=== PATIENT | male | born 1985 | race Caucasian/White ===

== ENCOUNTER → 2021-02-14 17:15 | Outpatient (BNVA) | payer SELFPAY | PROVIDERS: Family Provider Family Medicine; PCP Family Medicine; Visit Provider Nurse Practitioner Family | DX: N48.9 Disorder of penis, unspecified (principal); A64 Unspecified sexually transmitted disease | CPT/HCPCS: 87491; 87591 ==

== ENCOUNTER 2021-12-20 22:40 | Inpatient (IN) | payer MEDICAID, SELFPAY ==
[2021-12-20 22:55] VITALS: BP 125/80; PULSE 95; TEMP 35.9
--- NOTE | 2021-12-20 23:00 | PC.NURSE ---
Patient on Unit Patient brought to ICU 12 via stretcher with EMS. Upon assessment, patient's oxygen saturation 86% on 4L NC. Oxymask at 8L placed on patient bringing saturation up to 93%. Dr. Gilliam notified of patient arrival.
[2021-12-20 23:11] VITALS: BMI 27.1
[2021-12-20 23:30] VITALS: BP 120/79; PULSE 97; RESP 19; RESP 23; O2SAT 93; O2SAT 99
[2021-12-20 23:45] VITALS: BP 120/80; PULSE 101; RESP 24; O2SAT 90
--- NOTE | 2021-12-20 23:45 | PC.NURSE ---
Airborne Precautions Patient has the following risks for TB: an intermittent, productive cough producing blood streaked, frothy sputum; chest x-ray from [facility] reveals ground glass opacities; and patient reports current IV drug abuse in addition to being homeless. Dr. Gilliam notified of risk factors and patient placed on airborne precautions. Telephone order received for blood cultures while additional orders placed by Dr. Gilliam.
[2021-12-21] VITALS (43 sets, daily range): BP systolic 85–154; BP diastolic 57–86; PULSE 88–116; RESP 14–40; TEMP 36.8–37.2; O2SAT 83–100; BMI 27.1
[2021-12-21] MEDS: ondansetron 2 mg/ML SDV 2 mL 4 MG IVP (00:45)
[2021-12-21] MEDS: pantoprazole 40 mg SDV IVP (00:52)
--- NOTE | 2021-12-21 01:13 | PM.HP ---
Providers/Chief Complaint Admitting Physician: Aakash Gilliam Primary Care Provider: Chetna Cordon MD Chief Complaint: Overdose History of Present Illness 36-year-old gentleman with history of IV drug use disorder, injecting methamphetamine, occasionally smoking methamphetamine as well, alcohol use disorder, states drinks about a pint of hard liquor a day, usually vodka, current smoker of 1 pack/day of cigarettes, with history of untreated hepatitis C. He states has been doing well apart from more exertional dyspnea recently, as well as infected blisters on his heels several weeks ago after his feet got soft while he was in care home for a while and was not doing much walking. For this he had completed a course of antibiotic, with only a few tablets left, but states is not sure if some infection could not have entered his bloodstream at the time as he notes he has been having some sores on his forearms and hands. He usually injects methamphetamine, but states has heard some things about fentanyl from his friend who has been using it and last night decided to try it. He states he mixed some with methamphetamine, and injected in mid posterior forearm. He then became unresponsive, with his friend and family unsuccessfully attempting to wake him up by putting ice cream and water on him. EMS was called. He received intranasal Narcan, reported 2 doses, and was reported to also have received 2 minutes of CPR en route to [facility]. There he was awake and alert, but noted in hypoxic respite failure requiring 4 L of oxygen by nasal cannula. With hemoptysis with blood mixed with saliva with some froth. Asked if he had smoked any methamphetamine recently as well, and he states that indeed did smoke some yesterday. Following work-up was obtained at [facility]: ABG 7.3 //23 on 4 L nasal cannula. Coagulation studies, normal INR, PTT minimally elevated 32.9. WBC 11.6, hemoglobin 15.8, platelets 289. Sodium 139, potassium 3.6, anion gap 19, bicarb 21. BUN 16, creatinine 0.9. Calcium 8.5, albumin 4.4. AST 51, ALT 30, T bili 0.5, alk phos 77. Acetaminophen, salicylate levels not elevated. EtOH 43 mg/dL. Ammonia level WNL. TSH WNL. Was additionally tested with COVID-19 PCR, influenza a and B PCR. Both negative. CT angiogram chest with diffuse bilateral groundglass lung parenchymal opacities consistent with pulmonary edema. No evidence of acute pulmonary embolus. Given persistent hypoxia request was made for transfer. On arrival here he is noted requiring 8 L of oxygen by oxygen mask, arriving first on 4 L but with saturation of 86%. Currently he is doing slightly better. Oxygen flow decreased to 6 L. He states his chest is feeling mildly sore after CPR. He still having some intermittent cough with red blood mixed with clear sputum. Had one episode of vomiting here in the hospital, but blood is not due to hematemesis. He endorses that he is currently homeless, living in his pickup truck. He denies night sweats, unintended weight loss, chronic cough, denies hemoptysis preceding last night's events. Review of Systems Const: Denies: fever(s), chills, body aches or malaise Eyes: Denies: change in vision, eye discomfort or eye redness ENMT: Denies: throat pain, oral sores or ear or mastoid pain Card: Reports: chest pain and dyspnea on exertion; Denies: edema or pre-syncope Resp: Reports: dyspnea and hemoptysis; Denies: change in phlegm color GI: Denies: abdominal pain, nausea, vomiting, diarrhea, constipation, hematochezia or melena : Denies: flank pain, difficulty urinating, urinary frequency or hematuria Musc: Denies: back pain, joint swelling or joint redness Skin/Breast: Reports: sores (Reports recently having small sores on his hands arms, hands); Denies: rash Neuro: Denies: headache(s), numbness in extremities, weakness in extremities, dizziness, confusion or seizure-like activity Psych: Reports: other (Denies that the events were related to any intended self-harm.); Denies: suicidal ideation Endo: Denies: polyuria or polydipsia Facundo/Lymph: Denies: easy bleeding or tender lymph nodes All/Imm: Denies: urticaria or tongue swelling Medications/Allergies Home Medications Medication Instructions Recorded Confirmed Last Taken Type valacyclovir 500 mg tablet 1,000 mg PO BID 10 Days #40 tab 02/14/21 02/14/21 Unknown Rx Allergies Allergy/AdvReac Type Severity Reaction Status Date / Time No Known Allergies Allergy Verified 02/14/21 16:45 PFSH Acute PFSH: Medical History Alcohol use disorder Asthma Hepatitis C IVDU (intravenous drug user) Methamphetamine abuse Smoking Surgical History H/O right knee surgery Hx of cholecystectomy Social History Smoking and tobacco status: current every day smoker cigarettes Alcohol intake: current Alcohol intake frequency: 3 or more drinks per day Alcohol type: hard liquor Alcohol use comment: pint, usually vodka Substance/Drug Use: current Substance/Drug use frequency: daily Housing: Homeless Marital status: Single Vitals/I&O/Wt 12/20/21 12/20/21 12/21/21 14:59 22:59 06:59 Output Total 700 / 700 Balance -700 / -700 Weight last 48 hrs Weight 83.552 kg Physical Exam Const: COMMON NORMALS: alert GENERAL APPEARANCE: cooperative and disheveled ORIENTATION/CONSCIOUSNESS: Yes awake OTHER: Pleasant, conversant, cooperative. HENMT: COMMON NORMALS: normocephalic, EAC's normal, Normal external nose present and moist oral mucous membranes HEAD & SCALP: normocephalic NOSE: Normal external nose present EXTERNAL AUDITORY CANAL: EAC's normal Neck/C-Spine: COMMON NORMALS: no meningeal signs Chest: CHEST: Yes Symmetrical chest wall rise Resp: AUSCULTATION: diminished lung sounds OTHER: Coarse breath sounds Cardio: COMMON NORMALS: regular rate, regular rhythm and No murmurs present (Cardio) RATE: regular rate RHYTHM: regular rhythm GI: COMMON NORMALS: Normal to inspection, nondistended, normoactive bowel sounds present, Soft to palpation and non-tender PALPATION: Yes Soft to palpation Extremity: COMMON NORMALS: no pedal edema Neuro: COMMON NORMALS: moves all extremities SENSORIUM/ORIENTATION: Yes alert MENINGEAL SIGNS: Yes no meningeal signs Psych: COMMON NORMALS: mental status grossly normal Skin: LESIONS: lesion noted (Small sores noted on forearms, hands bilaterally.) RASHES: no rashes OTHER: [place] emmanuel posterior right mid forearm, no surrounding erythema or swelling A&P Assessment and plan (1) Acute respiratory failure with hypoxia: Acute hypoxic respiratory failure currently, initially at [facility] noted to have mild hypercapnic respite acidosis after became unresponsive after accidental drug overdose. With hemoptysis blood mixed with clear sputum. Groundglass opacity seen on CT angiogram of the chest done at [facility]. COVID-19 and influenza PCR both negative. He denies hemoptysis preceding these events. Did receive CPR about [address] to [facility]. Possible flash pulmonary edema following respiratory arrest, CPR. Possible diffuse alveolar hemorrhage. He states he did also smoke methamphetamine yesterday. Possible aspiration. Possible pneumonia or atypical infection. No PE on CTA. Discussed differential diagnosis with him. On arrival here hypoxia was slightly worse, requiring 8 L of oxygen by mask due to saturating 86% on 4 L. Currently doing slightly better, nasal cannula flow decreased to 6 L. With possibility of flash pulmonary edema, but will hold off on diuretics or positive pressure ventilation currently as he now remains awake, alert, and appears to be stabilizing on current oxygen. Continue oxygen support, wean down as tolerating. Will empirically cover with Zosyn for possible aspiration, aspiration pneumonia. Collect sputum cultures. Coagulation studies with minimally elevated PTT, normal INR. Monitor hemoptysis. Currently small months of red blood Giurgius blood with clear sputum. He endorses that he remains homeless, also endorses history of incarceration, with groundglass opacities, hemoptysis, recently dyspnea, will request AFB sputum's as well, although he denies other symptoms, and would suspect tuberculosis less likely. Status: Acute (2) Hemoptysis: As above. Repeat blood counts. Status: Acute (3) Ground glass opacity present on imaging of lung: COVID-19 PCR and influenza PCR negative. Suspect this is related to hemoptysis, possibly diffuse overall hemorrhage. Possible pulmonary edema. Possible pneumonitis with aspiration. Additionally requested AFB x3. Discussed with him also lower possibility, but will need to exclude given persistent IV drug use of endocarditis and septic embolization. Blood cultures requested. Status: Acute (4) Accidental drug overdose: Denies any intended self-harm. The overdose after for the first time trying fentanyl mixed into methamphetamine and injected. Status: Acute (5) Dyspnea: Reports recently having more dyspnea especially with exertion. Endorses some history of asthma. Albuterol as needed. Denies any hemoptysis proceeding last night events. Discussed with him also lower possibility, but will need to exclude given persistent IV drug use of endocarditis and septic embolization. Blood cultures requested. Status: Acute (6) IVDU (intravenous drug user): Check HIV, hepatitis panel. He does occasionally share needles. Case management consultation for assistance with seeking rehabilitation. He states he is interested. Status: Acute (7) Methamphetamine abuse: Normally injects or smokes. Status: Acute (8) Hepatitis C: History of untreated hepatitis C. Would benefit from establishing with PCP, referral for treatment and follow-up. Hepatitis panel. Discussed with him risks including liver cirrhosis, cancer. Encouraged to establish follow-up and seek treatment in case of chronic hepatitis C. Status: Acute (9) Alcohol use disorder: Was drinking about a pint of hard liquor daily, usually vodka. He is not aware of history of withdrawal. Start timing, folic acid. Ativan per CIWA protocol. Encourage abstinence. Case management consultation for assistance with rehabilitation. Status: Acute (10) Smoking: Discussed with him smoking cessation. Add nicotine patch, lozenges for replacement. Continue to encourage cessation. Status: Acute (11) Homeless: Case management consultation. Status: Acute Plan Cardiopulmonary arrest on the way to [facility], received 2 minutes of CPR. Will assess with echo. Attestations Medical Necessity Statement*: Admission of over 2 midnights is anticipated for assessment management of hypoxic respiratory failure, hemoptysis. 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
[2021-12-21] MEDS: piperacillin-tazobactam 3.375 GM in sodium chloride 0.9% (plus) 50 ML IV ×3 (02:02→20:36)
--- NOTE | 2021-12-21 02:41 | USCV_ITS ---
Transthoracic Echo Stephan Sherman Age: 36 Gender: M : 1985 Exam Date: 12/21/2021 03:10 Ordering Phys: Aakash Gilliam MD Technologist: Riki Parnell [place] [facility] [place]: cardipulmonary arrest pre- admission BP: 107 / 65 HR: 101 Rhythm: Sinus Technical Quality: Adequate MEASUREMENTS (Male / Female) Normal Values 2D ECHO LV Diastolic Diameter PLAX 4.6 cm 4.2 - 5.9 / 3.9 - 5.3 cm LV Systolic Diameter PLAX 2.6 cm IVS Diastolic Thickness 1.2 cm 0.6 - 1.0 / 0.6 - 0.9 cm IVS Systolic Thickness 1.3 cm LVPW Diastolic Thickness 1.1 cm 0.6 - 1.0 / 0.6 - 0.9 cm LVPW Systolic Thickness 1.5 cm LVOT Diameter 2.0 cm LV Ejection Fraction 2D Teich 76.1 % LV Ejection Fraction MOD 2C 64.6 % LV Ejection Fraction 2C AL 65.9 % LA Diameter 2.5 cm LA Width 3.5 cm LA Height 3.9 cm RA Width 3.6 cm RA Height 4.3 cm Aorta at Sinotubular Diameter 2.4 cm M-MODE Aortic Annulus Diameter 2.1 cm LA Ao Ratio MM 1.5 MV E Point Septal Separation 1.1 cm DOPPLER AV Peak Velocity 183.8 cm/s LVOT Peak Velocity 144.0 cm/s AV Area Cont Eq vti 2.4 cm squared AV Area Cont Eq pk 2.4 cm squared MV Area PHT 3.0 cm squared Mitral E to A Ratio 0.8 MV E' Velocity 45.0 cm/s Mitral E to MV E' Ratio 7.0 Mitral E to LV E' Lateral Ratio 6.3 Mitral E to LV E' Septal Ratio 7.9 TR Peak Velocity 123.8 cm/s TR Peak Gradient 6.1 mmHg TR Mean Velocity 77.2 cm/s TR Mean Gradient 2.8 mmHg TR Velocity Time Integral 29.9 cm Right Atrial Pressure 5.0 mmHg Pulmonary Artery Systolic Pressu 11.1 mmHg PV Peak Velocity 111.0 cm/s FINDINGS Left Ventricle Normal left ventricular size, systolic function and wall thickness, with no regional wall motion abnormalities. Left ventricular ejection fraction is estimated at 65 %. Grade I/IV diastolic dysfunction (abnormal relaxation filling pattern), normal to mildly elevated filling pressures. Right Ventricle The right ventricle is normal in size and function. Right Atrium The right atrium is normal in size. Left Atrium The left atrium is normal in size. Mitral Valve Structurally normal mitral valve without significant stenosis or prolapse. There is no mitral regurgitation. Aortic Valve Structurally normal aortic valve without significant sclerosis or stenosis. There is no aortic regurgitation. Tricuspid Valve Structurally normal tricuspid valve without significant stenosis or regurgitation. Pulmonary artery systolic pressure is normal. Pulmonic Valve Structurally normal pulmonic valve without significant stenosis. There is no pulmonic regurgitation. Pericardium Normal pericardium without effusion. Aorta Normal ascending aorta dimension. CONCLUSIONS Normal left ventricular size, systolic function and wall thickness, with no regional wall motion abnormalities. Left ventricular ejection fraction is estimated at 65 %. Grade I/IV diastolic dysfunction (abnormal relaxation filling pattern), normal to mildly elevated filling pressures. Dr. Suman Stone MD (Electronically Signed) Final Date: 21 December 2021 09:21 S
[2021-12-21 06:13] LABS: Basophils # 0.1 10^3/uL (0.0-0.1); Basophils % 0.3 %; Eosinophils # 0.1 10^3/uL (0.0-0.8); Eosinophils % 0.3 %; Hematocrit 41.7 % (42.0-52.0); Hemoglobin 13.6 g/dL (11.7-16.6); Lymphocytes % 15.8 %; Mean Corpuscular HGB Conc 32.6 g/dL (30.0-36.0); Mean Corpuscular Hemoglobin 32.3 pg (28.0-34.0); Mean Platelet Volume 10.1 fL (7.4-10.4); Monocytes # 0.8 10^3/uL (0.2-0.9); Monocytes % 4.3 %; Neutrophils # 15.02 10^3/uL (1.8-7.7); Neutrophils % 78.9 %; Nucleated Red Blood Cells % 0 %; Platelet Count 265 10^3/cmm (130-400); Red Blood Count 4.21 10^6/uL (4.1-5.3); Red Cell Distribution Width 13.4 % (12.1-15.1)
[2021-12-21 06:36] LABS: Alanine Aminotransferase 29 U/L (0-41); Albumin Level 3.6 g/dL (3.5-5.2); Alkaline Phosphatase 84 IU/L (40-130); Anion Gap 13.2 (5-19); Aspartate Amino Transferase 37 U/L (0-40); Blood Urea Nitrogen 12 mg/dL (6-20); Calcium 8.4 mg/dL (8.5-10.5); Carbon Dioxide 24 mmol/L (22-29); Chloride 103 mmol/L (98-107); Globulin 2.1 g/dL (1.3-4.6); Glomerular Filtration Rate 129.1 mL/min (90-130); Glucose 87 mg/dL (65-115); Osmolality Calculated 281 mOsm/kg (285-295); Potassium 4.2 mmol/L (3.5-5.1); Sodium 136 mmol/L (136-145); Total Protein 5.7 g/dL (6.6-8.7)
[2021-12-21 07:32] LABS: HIV 1 & 2 Antibody Non-Reactive (Non-Reactiv); HIV 1 & 2 Antigen Non-Reactive (Non-Reactiv)
[2021-12-21 07:53] LABS: Hepatitis B Core IgM Non-Reactive (Nonreactive); Hepatitis B Surface Antigen Non-Reactive (Nonreactive); Hepatitis C Virus Antibody Reactive (Nonreactive)
[2021-12-21] MEDS: thiamine 100 mg Tablet PO (09:10)
[2021-12-21] MEDS: multivitamin therapeutic Tablet 1 TAB PO (09:10)
[2021-12-21] MEDS: folic acid 1 mg Tablet PO (09:11)
[2021-12-21] MEDS: nicotine 21 mg Patch 1 PATCH TRANSDERMA (09:11)
--- NOTE | 2021-12-21 13:31 | PM.PN ---
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 Awaiting TB test result HIV negative Afebrile Hemodynamically stable Patient is stating that he lives in a truck and his family has not been able to accept him back yet Vitals/I&O/Wt Last Vital Signs Temp 98.7 F 12/21/21 07:30 Pulse 92 12/21/21 12:00 Resp 19 H 12/21/21 12:00 BP 110/71 12/21/21 11:00 Pulse Ox 92 12/21/21 12:00 12/20/21 12/21/21 12/21/21 22:59 06:59 14:59 Intake Total 930 / 930 494 / 494 Output Total 1335 / 1335 1000 / 1000 Balance -405 / -405 -506 / -506 Weight last 48 hrs Weight 83.552 kg Weight 83.552 kg Physical Exam Narrative: Very pleasant cooperative Well-built lean male male Skin sloughing noticed of his feet no active sign of cellulitis Skin tattoos No active signs of volume overload He has been spitting pink-colored sputum S1, S2 Saturating well on room air Abdomen soft Crackles noted bibasilar area nonlabored breathing Data : 12/21/21 05:30 12/21/21 05:30 Micro: Microbiology 12/21/21 06:15 Legionella Urinary Antigen - Final Urine,Voided Bacterial Antigens - Final 12/21/21 01:05 Gram Stain - Final Sputum - Expectorated Sputum 12/21/21 00:55 Blood Culture - Preliminary Blood SPECIMEN COLLECTED 12/21/21 00:50 Blood Culture - Preliminary Blood SPECIMEN COLLECTED A&P Assessment and plan (1) Homeless: Status: Acute (2) Smoking: Status: Acute (3) Methamphetamine abuse: Status: Acute (4) IVDU (intravenous drug user): Status: Acute (5) Alcohol use disorder: Status: Acute (6) Accidental drug overdose: Status: Acute (7) Hepatitis C: Status: Acute (8) Dyspnea: Status: Acute (9) Ground glass opacity present on imaging of lung: Status: Acute (10) Hemoptysis: Status: Acute (11) Acute respiratory failure with hypoxia: Status: Acute Plan Drug overdose Meth amphetamine and fentanyl Patient was incarcerated for possession of illegal drugs and property damage He is homeless He has been diagnosed with hepatitis C, which he will need treatment outpatient Hypoxia: Resolved currently doing well on room air Hemoptysis: Resolved currently minimal pink-colored sputum production Is hemodynamically stable Reportedly he had a cardiopulmonary arrest for about 2 minutes of CPR which was done by the EMS He is awake and alert I am not sure if he develop pulmonary contusion from the CPR that is why he is spitting up pink sputum, he has multiple risk factors, his immunocompromised, tuberculosis PCR has been requested by the admitting doctor HIV panel is negative No active alcohol withdrawal signs No signs of PE Groundglass opacities My differential would include pulmonary contusion and aspiration before considering tuberculosis and alveolar hemorrhage Acute hypoxic respiratory failure: Resolved No active signs of sepsis Patient can be transferred out of ICU if there is a negative isolation room upstairs Attestations Medical Necessity Statement*: Continue medical management Time Spent in Patient Care: 30mins Coding Level of Care 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
--- NOTE | 2021-12-21 13:44 | XRR_ITS ---
PROCEDURE INFORMATION: Exam: XR Chest Exam date and time: 12/21/2021 3:55 PM Age: 36 years old Clinical indication: Shortness of breath; Additional info: Ggo hypoxia TECHNIQUE: Imaging protocol: XR of the chest. Views: 1 view. COMPARISON: No relevant prior studies available. FINDINGS: Lungs: Ill-defined small rounded opacities centered within the upper lobes. Pleural spaces: No pleural effusion. No pneumothorax. Heart/Mediastinum: No cardiomegaly. Bones/joints: Visualized osseous structures are intact. XR/XR chest 1V portable 07016 IMPRESSION: Ill-defined small rounded opacities centered within the upper lobes suspicious for small airway infectious or inflammatory process.
[2021-12-21] MEDS: FUROsemide 10 mg/mL SDV 2mL 20 MG IVP (14:14)
--- NOTE | 2021-12-21 16:18 | PC.NURSE ---
1615- Patient transferred to second floor room 257 via wheelchair. Patient resting in room with nurse and family at bedside. Belongings transferred with patient. Paper chart left with front desk manager staff.
--- NOTE | 2021-12-21 17:35 | PC.NURSE ---
patient has belongings in the [employer]..
--- NOTE | 2021-12-21 17:36 | PC.NURSE ---
Patient has clothing and snacks in bags in room. This nurse went through them with the ICU nurse. Cleopatra sent home with family member, red mary, 2 room fresheners, pepside and nicotine patches in the [employer].
[2021-12-21] MEDS: amoxicillin-clav 875-125 mg Tablet 1 TAB PO (18:27)
--- NOTE | 2021-12-21 18:31 | PC.NURSE ---
Notified Dr. Garrison of a positive gram positive romina in 1 of 4 blood culture bottles
--- NOTE | 2021-12-21 19:14 | PC.PHAR ---
Vancomycin is dosed at 1gm IVPB every 8 hours to produce a predicted trough level of 12.42 (population based pharmacokinetic analysis). A trough level has been ordered from the lab to be obtained before the fourth dose to confirm and adjust if needed.
[2021-12-21] MEDS: metoprolol tartrate 25 mg Tablet PO ×2 (20:35→22:51)
[2021-12-22] VITALS (9 sets, daily range): BP systolic 113–127; BP diastolic 65–74; PULSE 78–91; RESP 16–18; TEMP 36.5–37.4; O2SAT 91–98
[2021-12-22] MEDS: pantoprazole 40 mg SDV IVP (01:22)
[2021-12-22] MEDS: vancomycin 1,000 MG in sodium chloride 0.9% 250 ML 250 MG IV ×3 (03:17→18:28)
[2021-12-22] MEDS: piperacillin-tazobactam 3.375 GM in sodium chloride 0.9% (plus) 50 ML IV ×2 (04:57→11:24)
[2021-12-22 06:06] LABS: Basophils # 0.1 10^3/uL (0.0-0.1); Basophils % 0.8 %; Eosinophils # 0.5 10^3/uL (0.0-0.8); Eosinophils % 5.4 %; Hematocrit 41.4 % (42.0-52.0); Hemoglobin 13.4 g/dL (11.7-16.6); Lymphocytes # 3.2 10^3/uL (0.8-4.8); Lymphocytes % 32.8 %; Mean Corpuscular HGB Conc 32.4 g/dL (30.0-36.0); Mean Corpuscular Hemoglobin 32.4 pg (28.0-34.0); Mean Platelet Volume 9.8 fL (7.4-10.4); Monocytes % 9.7 %; Neutrophils # 4.98 10^3/uL (1.8-7.7); Neutrophils % 50.8 %; Nucleated Red Blood Cells % 0 %; Platelet Count 229 10^3/cmm (130-400); Red Blood Count 4.14 10^6/uL (4.1-5.3); Red Cell Distribution Width 13.4 % (12.1-15.1); White Blood Count 9.8 10^3/uL (4.0-10.0)
[2021-12-22 06:30] LABS: Alanine Aminotransferase 21 U/L (0-41); Albumin Level 3.4 g/dL (3.5-5.2); Alkaline Phosphatase 82 IU/L (40-130); Anion Gap 10.8 (5-19); Aspartate Amino Transferase 20 U/L (0-40); Blood Urea Nitrogen 10 mg/dL (6-20); Calcium 8.5 mg/dL (8.5-10.5); Carbon Dioxide 25 mmol/L (22-29); Chloride 107 mmol/L (98-107); Globulin 2.2 g/dL (1.3-4.6); Glomerular Filtration Rate 96.6 mL/min (90-130); Glucose 102 mg/dL (65-115); Osmolality Calculated 287 mOsm/kg (285-295); Phosphorus 2.5 mg/dL (2.5-4.5); Potassium 3.8 mmol/L (3.5-5.1); Sodium 139 mmol/L (136-145); Total Bilirubin 0.3 mg/dL (0.15-1.2); Total Protein 5.6 g/dL (6.6-8.7)
[2021-12-22 06:35] LABS: Procalcitonin 0.09 ng/mL (0-0.5)
--- NOTE | 2021-12-22 08:43 | PM.PN ---
Subjective Subjective: Patient is comfortable laying in his bed No overnight events He was complaining of right-sided chest pain which is reproducible His chest pain gets worse on any kind of movement of his upper arms No left-sided or midepigastric pain No nausea or vomiting [place] sputum production has been decreased Hemoglobin stable Afebrile Blood cultures showing gram-positive rods Chest x-ray consistent with pneumonia Vitals/I&O/Wt Last Vital Signs Temp 97.9 F 12/22/21 07:45 Pulse 84 12/22/21 08:20 Resp 16 12/22/21 08:20 BP 113/66 12/22/21 07:45 Pulse Ox 93 12/22/21 08:20 12/21/21 12/22/21 12/22/21 22:59 06:59 14:59 Intake Total 360 / 904 300 / 1204 Output Total 250 / 1250 Balance 360 / -96 50 / -46 Weight last 48 hrs Weight 85.729 kg Weight 83.552 kg Weight 83.552 kg Physical Exam Narrative: Euvolemic Pleasant and cooperative Multiple skin tattoos No active signs of edema No signs of fluid overload Abdomen soft Skin sloughing noticed plantar surface of foot bilaterally No active signs cellulitis Awake and alert No audible stridor or wheezing Saturating well on room air Data : 12/22/21 05:43 12/22/21 05:43 Micro: Microbiology 12/21/21 00:50 Blood Culture - Preliminary Blood NEGATIVE TO DATE 12/21/21 00:55 Blood Culture - Preliminary Blood Gram positive romina 12/21/21 06:15 Legionella Urinary Antigen - Final Urine,Voided Bacterial Antigens - Final 12/21/21 01:05 Gram Stain - Final Sputum - Expectorated Sputum A&P Assessment and plan (1) Homeless: Status: Acute (2) Smoking: Status: Acute (3) Methamphetamine abuse: Status: Acute (4) IVDU (intravenous drug user): Status: Acute (5) Alcohol use disorder: Status: Acute (6) Accidental drug overdose: Status: Acute (7) Hepatitis C: Status: Acute (8) Dyspnea: Status: Acute (9) Ground glass opacity present on imaging of lung: Status: Acute (10) Hemoptysis: Status: Acute (11) Acute respiratory failure with hypoxia: Status: Acute Plan Acute hypoxia: Resolved Currently doing well on room air Chest x-ray consistent with pneumonia Concern for aspiration pneumonia, rule out TB, afebrile Blood culture positive for gram-positive romina, Currently on vancomycin and Zosyn Patient is a IV drug abuser as well, will follow with echo report, which is pending IV drug abuse: Patient currently is not showing active signs of septic embolism, no back pain, he was complaining of right-sided chest pain which most likely is due to the CPR that was done in the ambulance No active signs of withdrawal, continue thiamine, folic acid He has not required Ativan Hemoptysis: Resolved [place] sputum production has improved sputum cultures negative so far HIV panel negative Hepatitis C positive will need outpatient [facility] clinic appointment Pulmonary contusion likely related to CPR done in the ambulance is high on my differential Patient is full code Start regular diet Hemoglobin stable, will start DVT prophylaxis Homeless: Patient is stating that his family might be able to accept him back, Attestations Medical Necessity Statement*: Continue hospitalization until TB results come back Time Spent in Patient Care: 20mins Coding Level of Care 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
[2021-12-22] MEDS: multivitamin therapeutic Tablet 1 TAB PO (09:34)
[2021-12-22] MEDS: thiamine 100 mg Tablet PO (09:34)
[2021-12-22] MEDS: metoprolol tartrate 25 mg Tablet PO ×2 (09:34→23:12)
[2021-12-22] MEDS: folic acid 1 mg Tablet PO (09:34)
[2021-12-22] MEDS: enoxaparin 40 mg/0.4 mL Syringe SUBCUT (09:38)
[2021-12-22] MEDS: nicotine 21 mg Patch 1 PATCH TRANSDERMA (10:29)
[2021-12-22] MEDS: piperacillin-tazobactam 3.375 GM in sodium chloride 0.9% (plus) 50 ML 1.5 GM IV (18:25)
[2021-12-22] MEDS: acetaminophen 325 mg Tablet 650 MG PO (18:36)
[2021-12-22] MEDS: pantoprazole DR 40 mg Tablet PO (23:13)
[2021-12-23] VITALS (9 sets, daily range): BP systolic 115–138; BP diastolic 62–74; PULSE 69–90; RESP 14–19; TEMP 36.4–37; O2SAT 94–98
[2021-12-23 01:39] LABS: Basophils # 0.1 10^3/uL (0.0-0.1); Basophils % 0.7 %; Eosinophils # 0.5 10^3/uL (0.0-0.8); Eosinophils % 4.9 %; Hematocrit 40.2 % (42.0-52.0); Lymphocytes # 3.4 10^3/uL (0.8-4.8); Lymphocytes % 35.4 %; Mean Corpuscular HGB Conc 32.3 g/dL (30.0-36.0); Mean Platelet Volume 9.8 fL (7.4-10.4); Monocytes # 0.9 10^3/uL (0.2-0.9); Monocytes % 9.5 %; Neutrophils % 49.2 %; Nucleated Red Blood Cells % 0 %; Platelet Count 227 10^3/cmm (130-400); Red Blood Count 4.06 10^6/uL (4.1-5.3); Red Cell Distribution Width 13.2 % (12.1-15.1); White Blood Count 9.6 10^3/uL (4.0-10.0)
[2021-12-23 02:07] LABS: Vancomycin Trough 5.7 ug/mL (10-15)
[2021-12-23 02:09] LABS: Alanine Aminotransferase 15 U/L (0-41); Albumin Level 3.3 g/dL (3.5-5.2); Alkaline Phosphatase 71 IU/L (40-130); Aspartate Amino Transferase 15 U/L (0-40); Blood Urea Nitrogen 9 mg/dL (6-20); Calcium 8.7 mg/dL (8.5-10.5); Carbon Dioxide 25 mmol/L (22-29); Chloride 107 mmol/L (98-107); Globulin 2.2 g/dL (1.3-4.6); Glomerular Filtration Rate 110.7 mL/min (90-130); Glucose 106 mg/dL (65-115); Osmolality Calculated 291 mOsm/kg (285-295); Sodium 141 mmol/L (136-145); Total Bilirubin 0.3 mg/dL (0.15-1.2); Total Protein 5.5 g/dL (6.6-8.7)
--- NOTE | 2021-12-23 02:58 | PC.PHAR ---
Pharmacokinetic dosing service Date: 12/23/21 Time: 0300 Patient: Floor: Weight: 85.729 Kilograms Vancomycin single level analysis: Current dose being given: mg Current dosing interval: hrs Current infusion time (hrs): 1 Single level Trough Data: Trough level obtained: 5.7 mcg/ml Timing of trough - # of hrs before next dose: 1.5 Hrs Desired peak: 40 mcg/ml Desired trough: 15 mcg/ml Diagnosis: Relevant medical/social history: Cultures and sensitivities: Other labs: Estimated PK Parameters: New rate constant (bobby): 0.182 hr-1 Half-life: 3.81 Hours Vd from levels: 77.16 Liters (0.7 L/kg) CLvanco=?? 14.043 L/hr Estimated New Dose and Interval Recommended dose: 2322.6 mg Recommended interval: 6.4 Hrs Patient response: Patient is responding to treatment [yes/no] wbc decreasing, S/SX reduced [yes/no] Renal function is stable/unstable Recommendations: Give Vancomycin 1500 mg q 8 hrs. Infuse over 1.5 hrs Expected Cpeak: 22.2 mcg/mL Expected Ctrough: 6.8 mcg/mL AUC 0-24 /LUDIN Data: LUDIN 0.5 mcg/mL:?? AUC/LUDIN:? 640.9 LUDIN 1.0 mcg/mL:?? AUC/LUDIN:? 320.4 Recommended labs and intervals: Measure Bun and Scr 3 times/week. Renal dosing of other antibiotics (review renal dosing of other medications and list guidelines here): Thank you for the consult, will continue to follow. Signature:Mary Sandhu [facility]
[2021-12-23] MEDS: vancomycin 1,500 MG/300 ML PIGGYBACK 200 MG IV (03:32)
[2021-12-23] MEDS: acetaminophen 325 mg Tablet 650 MG PO (03:41)
[2021-12-23] MEDS: piperacillin-tazobactam 3.375 GM in sodium chloride 0.9% (plus) 50 ML 1.5 GM IV (03:43)
[2021-12-23] MEDS: enoxaparin 40 mg/0.4 mL Syringe SUBCUT (08:30)
[2021-12-23] MEDS: nicotine 21 mg Patch 1 PATCH TRANSDERMA (08:30)
[2021-12-23] MEDS: metoprolol tartrate 25 mg Tablet PO ×2 (08:31→20:03)
[2021-12-23] MEDS: folic acid 1 mg Tablet PO (08:31)
[2021-12-23] MEDS: thiamine 100 mg Tablet PO (08:31)
[2021-12-23] MEDS: multivitamin therapeutic Tablet 1 TAB PO (08:31)
[2021-12-23] MEDS: amoxicillin-clav 875-125 mg Tablet 1 TAB PO ×2 (10:10→18:40)
--- NOTE | 2021-12-23 11:45 | PM.PN ---
Subjective Subjective: No evidence of bacteremia I will discontinue IV antibiotics, bacterial contamination of blood culture noted I will keep him on Augmentin only Patient is stating that he might be able to live with his sister in [place], he was eager to return home but unfortunately we have to wait for the tuberculosis test to return if we can make a decision to discharge him in the community Vitals/I&O/Wt Last Vital Signs Temp 97.6 F 12/23/21 07:28 Pulse 69 12/23/21 07:28 Resp 18 12/23/21 07:28 BP 120/74 12/23/21 07:28 Pulse Ox 96 12/23/21 07:28 12/22/21 12/23/21 12/23/21 22:59 06:59 14:59 Intake Total 540 / 1070 263.95 / 1333.95 550 / 550 Output Total 250 / 250 Balance 290 / 820 263.95 / 1083.95 550 / 550 Weight last 48 hrs Weight 85.275 kg Weight 85.729 kg Physical Exam Narrative: Patient is eating breakfast No active complaints Saturating well on room air S1, S2 Reproducible right-sided chest pain Multiple skin tattoos Looks euvolemic Pleasant Abdomen soft Saturating well on room air Data : 12/23/21 01:30 12/23/21 01:30 Micro: Microbiology 12/21/21 21:00 MRSA Culture - Final Nose 12/21/21 00:55 Blood Culture - Preliminary Blood Bacillus sp not b. anthracis 12/21/21 01:05 Gram Stain - Final Sputum - Expectorated Sputum Sputum Culture - Preliminary A&P Assessment and plan (1) Homeless: Status: Acute (2) Smoking: Status: Acute (3) Methamphetamine abuse: Status: Acute (4) IVDU (intravenous drug user): Status: Acute (5) Alcohol use disorder: Status: Acute (6) Accidental drug overdose: Status: Acute (7) Hepatitis C: Status: Acute (8) Dyspnea: Status: Acute (9) Ground glass opacity present on imaging of lung: Status: Acute (10) Hemoptysis: Status: Acute Plan Patient is awaiting tuberculosis test to be finalized Skin contamination and blood culture, he does not need IV antibiotics He is afebrile For his pneumonia I will keep him on Augmentin Pulmonary contusion which caused hemoptysis: Improved No active hemoptysis Hemoglobin stable No need to do CBC and BMP for next 2 days He can be released as soon as tuberculosis test is reported He is full code Regular diet DVT prophylaxis: SCDs No signs of alcohol withdrawal Continue thiamine Continue metoprolol for sinus tachycardia secondary to autonomic dysfunction related to alcohol Attestations Medical Necessity Statement*: Awaiting tuberculosis test to be reported Time Spent in Patient Care: 20min Coding Level of Care Code Acute Food Technology Teacher for g Fwd Diagnoses Homeless Z59.00 Smoking F17.200 Methamphetamine abuse F15.10 IVDU (intravenous drug user) F19.90 Alcohol use disorder Accidental drug overdose T50.901A Hepatitis C B19.20 Dyspnea R06.00 Ground glass opacity present on imaging of lung R91.8 Hemoptysis R04.2
--- NOTE | 2021-12-23 12:59 | PC.NURSE ---
When rounding at 12:30 on 12/23/2021 I noticed the patient's IV's were no longer in his arms. Patient stated that he physician said he no longer needed IV antibiotics and then the patient decided to remove both IVs by himself after the physician left. Securely messaged Dr. Garrison via Voalte and he has been made aware.
[2021-12-23] MEDS: pantoprazole DR 40 mg Tablet PO (20:03)
[2021-12-24] VITALS (8 sets, daily range): BP systolic 111–130; BP diastolic 64–71; PULSE 70–87; RESP 14–17; TEMP 36.3–36.7; O2SAT 95–98
[2021-12-24 05:25] LABS: Alanine Aminotransferase 18 U/L (0-41); Albumin Level 3.5 g/dL (3.5-5.2); Alkaline Phosphatase 70 IU/L (40-130); Anion Gap 12.6 (5-19); Aspartate Amino Transferase 16 U/L (0-40); Blood Urea Nitrogen 11 mg/dL (6-20); Calcium 8.7 mg/dL (8.5-10.5); Carbon Dioxide 22 mmol/L (22-29); Chloride 109 mmol/L (98-107); Globulin 2.4 g/dL (1.3-4.6); Glomerular Filtration Rate 129.1 mL/min (90-130); Glucose 82 mg/dL (65-115); Osmolality Calculated 288 mOsm/kg (285-295); Potassium 3.6 mmol/L (3.5-5.1); Sodium 140 mmol/L (136-145); Total Bilirubin 0.2 mg/dL (0.15-1.2); Total Protein 5.9 g/dL (6.6-8.7)
--- NOTE | 2021-12-24 06:29 | PC.NURSE ---
PATIENT ENCOURAGED TO GET UP TO CHAIR FOR BREAKFAST AT THIS TIME, PATIENT REFUSED. STATES HE WILL GET HIMSELF UP TO THE CHAIR LATER.
[2021-12-24] MEDS: amoxicillin-clav 875-125 mg Tablet 1 TAB PO ×2 (09:29→18:53)
[2021-12-24] MEDS: multivitamin therapeutic Tablet 1 TAB PO (09:30)
[2021-12-24] MEDS: nicotine 21 mg Patch 1 PATCH TRANSDERMA (09:30)
[2021-12-24] MEDS: thiamine 100 mg Tablet PO (09:30)
[2021-12-24] MEDS: enoxaparin 40 mg/0.4 mL Syringe SUBCUT (09:32)
[2021-12-24] MEDS: metoprolol tartrate 25 mg Tablet PO ×2 (09:32→22:20)
[2021-12-24] MEDS: folic acid 1 mg Tablet PO (09:32)
--- NOTE | 2021-12-24 10:33 | P.PN_ITS ---
Subjective Subjective: Afebrile Hemoglobin stable He does not need lab work for next 2 days We are still waiting on Mycobacterium PCR test We will touch base with lab to see if we can get results in expedited fashion Patient is stable to be discharged home once we see negative Mycobacterium PCR results Patient is stating that he will call his grandma today to see if he can stay with her, her grandmother is in [place] Vitals/I&O/Wt Last Vital Signs Temp 98.1 F 12/24/21 08:00 Pulse 78 12/24/21 09:22 Resp 16 12/24/21 09:22 BP 121/66 12/24/21 08:00 Pulse Ox 98 12/24/21 09:22 12/23/21 12/24/21 12/24/21 22:59 06:59 14:59 Intake Total 50 / 600 1200 / 1800 Balance 50 / 600 1200 / 1800 Weight last 48 hrs Weight 86.863 kg Weight 85.275 kg Physical Exam 2 Narrative: Pleasant cooperative male Was sleeping comfortably S1, S2 No audible stridor or wheezing Satting well on room air Multiple skin tattoos No abdominal pain Data : 12/23/21 01:30 12/24/21 04:25 Micro: Microbiology 12/21/21 01:05 Gram Stain - Final Sputum - Expectorated Sputum Sputum Culture - Final A&P Assessment and plan (1) Homeless: Status: Acute (2) Smoking: Status: Acute (3) Methamphetamine abuse: Status: Acute (4) IVDU (intravenous drug user): Status: Acute (5) Alcohol use disorder: Status: Acute (6) Accidental drug overdose: Status: Acute (7) Hepatitis C: Status: Acute Plan Hemoptysis secondary to pulmonary contusion: Improved Aspiration pneumonia continue Augmentin Patient is on room air Patient is cleared from medical standpoint to be discharged home we are waiting for Mycobacterium PCR Patient is planning to talk to his grandma to see if he can stay with her He will be able to get placement at homeless group home secondary to his criminal record Is also willing to go for rehab, telephonic nurse case manager will touch base with rehab facility in [place] to see if they can accept him if patient is agreeable No need to do labs for next 2 days Continue regular diet He will need outpatient hepatitis C treatment Continue thiamine DVT prophylaxis on board Attestations Medical Necessity Statement*: Awaiting Mycobacterium PCR results Time Spent in Patient Care: 20mins Coding Level of Care Code Acute Campus Receptionist for g Fwd Diagnoses Homeless Z59.00 Smoking F17.200 Methamphetamine abuse F15.10 IVDU (intravenous drug user) F19.90 Alcohol use disorder Accidental drug overdose T50.901A Hepatitis C B19.20
--- NOTE | 2021-12-24 16:09 | PC.NURSE ---
Patient is wishing to leave the hospital and wants the physician to talk to him about the status of his TB test and an estimated time he can be discharged from the hospital. I have securely messaged Dr. Garrison about the patient's requests.
[2021-12-24] MEDS: pantoprazole DR 40 mg Tablet PO (22:20)
[2021-12-25] VITALS (7 sets, daily range): BP systolic 122–131; BP diastolic 70–78; PULSE 73–83; RESP 14–19; TEMP 36.4–37.1; O2SAT 95–100
--- NOTE | 2021-12-25 02:41 | PC.NURSE ---
This nurse spoke with patient about IV access, pt stated he does not need IV access and will refuse any IV insertion. Charge nurse informed. pt is AAOX4.
[2021-12-25] MEDS: multivitamin therapeutic Tablet 1 TAB PO (09:13)
[2021-12-25] MEDS: thiamine 100 mg Tablet PO (09:13)
[2021-12-25] MEDS: nicotine 21 mg Patch 1 PATCH TRANSDERMA (09:13)
[2021-12-25] MEDS: amoxicillin-clav 875-125 mg Tablet 1 TAB PO ×2 (09:13→18:29)
[2021-12-25] MEDS: folic acid 1 mg Tablet PO (09:13)
[2021-12-25] MEDS: enoxaparin 40 mg/0.4 mL Syringe SUBCUT (09:13)
[2021-12-25] MEDS: metoprolol tartrate 25 mg Tablet PO ×2 (09:19→21:33)
--- NOTE | 2021-12-25 10:08 | P.PN_ITS ---
Subjective Subjective: I called lab twice, they are saying that this Mycobacterium PCR will be reported by Wednesday and we can put a rojas on it because of incubation period. No overnight events Vitals/I&O/Wt Last Vital Signs Temp 98.7 F 12/25/21 07:41 Pulse 80 12/25/21 08:44 Resp 16 12/25/21 08:44 BP 123/78 12/25/21 07:41 Pulse Ox 97 12/25/21 08:44 12/24/21 12/25/21 12/25/21 22:59 06:59 14:59 Intake Total 100 / 100 Balance 100 / 100 Weight last 48 hrs Weight 84.64 kg Weight 86.863 kg Physical Exam Narrative: Patient is pleasant Cooperative Nonfocal neuro exam S1, S2 Abdomen soft Reproducible right-sided chest pain Saturating well on room air EOMI, PERRLA Data : 12/23/21 01:30 12/24/21 04:25 A&P Assessment and plan (1) Homeless: Status: Acute (2) Smoking: Status: Acute (3) Methamphetamine abuse: Status: Acute (4) IVDU (intravenous drug user): Status: Acute (5) Alcohol use disorder: Status: Acute (6) Accidental drug overdose: Status: Acute (7) Hepatitis C: Status: Acute (8) Dyspnea: Status: Acute (9) Ground glass opacity present on imaging of lung: Status: Acute (10) Hemoptysis: Status: Acute Plan Hypoxemia: Improved currently on room air Hemoptysis: Resolved Hemoglobin and blood pressure stable Hemoptysis secondary to pulmonary contusion Secondary to upper lobe infiltrates Mycobacterium tuberculosis PCR has been sent, it will be reported on Wednesday Patient is plan to leave his his grandmother And plan to discharge him after Mycobacterium tuberculosis PCR result tomorrow For now continue Augmentin My suspicion for Mycobacterium tuberculosis is low Attestations Medical Necessity Statement*: Full code, anticipating discharge tomorrow Time Spent in Patient Care: 20mins Coding Level of Care Code Acute Fitting Room Supervisor for Chg Fwd Diagnoses Homeless Z59.00 Smoking F17.200 Methamphetamine abuse F15.10 IVDU (intravenous drug user) F19.90 Alcohol use disorder Accidental drug overdose T50.901A Hepatitis C B19.20 Dyspnea R06.00 Ground glass opacity present on imaging of lung R91.8 Hemoptysis R04.2
[2021-12-25 16:42] LABS: MTB Complex Respiratory PCR NOT DETECTED; MTB Source SPUTUM
[2021-12-25] MEDS: pantoprazole DR 40 mg Tablet PO (21:34)
[2021-12-26] VITALS: BP 97/59; PULSE 83; RESP 19; TEMP 36.5; O2SAT 96
[2021-12-26 04:00] VITALS: BP 106/70; PULSE 72; RESP 16; TEMP 36.6; O2SAT 98
[2021-12-26 07:43] VITALS: BP 114/68; PULSE 75; RESP 16; TEMP 36.4; O2SAT 96
[2021-12-26] MEDS: multivitamin therapeutic Tablet 1 TAB PO (08:18)
[2021-12-26] MEDS: thiamine 100 mg Tablet PO (08:18)
[2021-12-26] MEDS: metoprolol tartrate 25 mg Tablet PO (08:18)
[2021-12-26] MEDS: amoxicillin-clav 875-125 mg Tablet 1 TAB PO (08:18)
[2021-12-26] MEDS: folic acid 1 mg Tablet PO (08:18)
[2021-12-26] MEDS: nicotine 21 mg Patch 1 PATCH TRANSDERMA (08:18)
--- NOTE | 2021-12-26 10:27 | PM.DCS ---
Discharge Providers Date of Admission: 12/20/21 22:40 Date of Discharge: December 26, 2021 Attending Provider at Admission: Aakash Gilliam Attending Provider at Discharge: Tracie Garrison MD Primary Care Provider: Chetna Cordon MD Diagnoses at Discharge Discharge Diagnosis (1) Homeless: Status: Acute (2) Smoking: Status: Acute (3) Methamphetamine abuse: Status: Acute (4) IVDU (intravenous drug user): Status: Acute (5) Alcohol use disorder: Status: Acute (6) Accidental drug overdose: Status: Acute (7) Hepatitis C: Status: Acute (8) Dyspnea: Status: Acute (9) Ground glass opacity present on imaging of lung: Status: Acute (10) Hemoptysis: Status: Acute Reason for Visit Reason for Visit: Overdose Hospital Course Hospital Course Detailed note of Dr. Gilliam 36-year-old gentleman with history of IV drug use disorder, injecting methamphetamine, occasionally smoking methamphetamine as well, alcohol use disorder, states drinks about a pint of hard liquor a day, usually vodka, current smoker of 1 pack/day of cigarettes, with history of untreated hepatitis C. He states has been doing well apart from more exertional dyspnea recently, as well as infected blisters on his heels several weeks ago after his feet got soft while he was in detention for a while and was not doing much walking.? For this he had completed a course of antibiotic, with only a few tablets left, but states is not sure if some infection could not have entered his bloodstream at the time as he notes he has been having some sores on his forearms and hands.? He usually injects methamphetamine, but states has heard some things about fentanyl from his friend who has been using it and last night decided to try it.? He states he mixed some with methamphetamine, and injected in mid posterior forearm.? He then became unresponsive, with his friend and family unsuccessfully attempting to wake him up by putting ice cream and water on him.? EMS was called.? He received intranasal Narcan, reported 2 doses, and was reported to also have received 2 minutes of CPR en route to [facility].? There he was awake and alert, but noted in hypoxic respite failure requiring 4 L of oxygen by nasal cannula.? With hemoptysis with blood mixed with saliva with some froth. Asked if he had smoked any methamphetamine recently as well, and he states that indeed did smoke some yesterday. Following work-up was obtained at [facility]: ABG 7.3 //23 on 4 L nasal cannula. Coagulation studies, normal INR, PTT minimally elevated 32.9. WBC 11.6, hemoglobin 15.8, platelets 289. Sodium 139, potassium 3.6, anion gap 19, bicarb 21.? BUN 16, creatinine 0.9.? Calcium 8.5, albumin 4.4.? AST 51, ALT 30, T bili 0.5, alk phos 77.? Acetaminophen, salicylate levels not elevated.? EtOH 43 mg/dL.? Ammonia level WNL.? TSH WNL. Was additionally tested with COVID-19 PCR, influenza a and B PCR.? Both negative. CT angiogram chest with diffuse bilateral groundglass lung parenchymal opacities consistent with pulmonary edema.? No evidence of acute pulmonary embolus. Given persistent hypoxia request was made for transfer.? On arrival here he is noted requiring 8 L of oxygen by oxygen mask, arriving first on 4 L but with saturation of 86%.? Currently he is doing slightly better.? Oxygen flow decreased to 6 L. He states his chest is feeling mildly sore after CPR.? He still having some intermittent cough with red blood mixed with clear sputum.? Had one episode of vomiting here in the hospital, but blood is not due to hematemesis. He endorses that he is currently homeless, living in his pickup truck.? He denies night sweats, unintended weight loss, chronic cough, denies hemoptysis preceding last night's events. Hospital course Patient was admitted to ICU for management of acute hypoxia related to IV drug accidental overdose. Patient has endorsed to taking methamphetamine and fentanyl IV. He remained hemodynamically stable, we were able to wean him off to room air. He remained afebrile, cultures are negative blood culture showed skin gaby contamination otherwise no signs of sepsis or bacteremia. Echo showed preserved ejection fraction grade 1 diastolic function. At the time of admission Mycobacterium tuberculosis PCR test was sent which came back on 12/26 as negative. He was kept on Augmentin for possible aspiration pneumonia. Hemoptysis was secondary to pulmonary contusion. No signs of alveolar hemorrhage. Hemoglobin remained stable. We will try to place him into a homeless fci however because of criminal history were unable to do so. Patient has spoken to his grandma who lives in [place], he is planning to live with her for now. He was given metoprolol for autonomic dysfunction initially when he came in however he remained pretty stable I am not going to resume metoprolol at the time of discharge. I would only add thiamine. He has finished 6 days of antibiotics already no need to continue antibiotics for aspiration pneumonia, no recurrence of hemoptysis. Hemoglobin at discharge 13.0 STD panel negative, HIV panel negative, he has hepatitis C antibodies, hepatitis C quantification PCR is pending, asked case reviewer to set him up with Dr. Healy for hepatitis C treatment outpatient May benefit from repeat chest x-ray within 6 weeks, Physical Exam Narrative: Patient is pleasant Cooperative Nonfocal neuro exam S1, S2 Abdomen soft Reproducible right-sided chest pain Saturating well on room air EOMI, PERRL Discharge Data Studies Completed and Pending Completed Studies During Hospitalization Category Date Time Status XR chest 1V portable [id number] Routine Exams 12/21/21 13:44 Completed CV. echo complete* [id number] Routine Ultrasound 12/21/21 02:41 Completed Pending at discharge Category Date Time Status Blood Culture Stat Lab 12/20/21 23:52 Results Hepatitis C RNA Viral Load Qnt Routine Lab 12/21/21 08:32 Received Mycobacterium TB Respiratory Q8H Lab 12/21/21 07:35 Received Mycobacterium TB Respiratory Q8H Lab 12/21/21 17:15 Received Radiology Impressions Chest X-Ray 12/21/21 13:44 IMPRESSION: Ill-defined small rounded opacities centered within the upper lobes suspicious for small airway infectious or inflammatory process. Laboratory Results WBC 9.6 10^3/uL (4.0-10.0) 12/23/21 01:30 RBC 4.06 10^6/uL (4.1-5.3) L 12/23/21 01:30 Hgb 13.0 g/dL (11.7-16.6) 12/23/21 01:30 Hct 40.2 % (42.0-52.0) L 12/23/21 01:30 MCV 99.0 fl (80-94) H 12/23/21 01:30 MCH 32.0 pg (28.0-34.0) 12/23/21 01:30 MCHC 32.3 g/dL (30.0-36.0) 12/23/21 01:30 RDW 13.2 % (12.1-15.1) 12/23/21 01:30 Plt Count 227 10^3/cmm (130-400) 12/23/21 01:30 MPV 9.8 fL (7.4-10.4) 12/23/21 01:30 Neut % (Auto) 49.2 % 12/23/21 01:30 Lymph % (Auto) 35.4 % 12/23/21 01:30 [place] % (Auto) 9.5 % 12/23/21 01:30 Eos % (Auto) 4.9 % 12/23/21 01:30 Baso % (Auto) 0.7 % 12/23/21 01:30 Neut # (Auto) 4.70 10^3/uL (1.8-7.7) 12/23/21 01:30 Lymph # (Auto) 3.4 10^3/uL (0.8-4.8) 12/23/21 01:30 [place] # (Auto) 0.9 10^3/uL (0.2-0.9) 12/23/21 01:30 Eos # (Auto) 0.5 10^3/uL (0.0-0.8) 12/23/21 01:30 Baso # (Auto) 0.1 10^3/uL (0.0-0.1) 12/23/21 01:30 Nucleated RBC % (auto) 0 % 12/23/21 01:30 Nucleated RBCs # 0.0 /100WBC 12/23/21 01:30 Sodium 140 mmol/L (136-145) 12/24/21 04:25 Potassium 3.6 mmol/L (3.5-5.1) 12/24/21 04:25 Chloride 109 mmol/L (98-107) H 12/24/21 04:25 Carbon Dioxide 22 mmol/L (22-29) 12/24/21 04:25 Anion Gap 12.6 (5-19) 12/24/21 04:25 BUN 11 mg/dL (6-20) 12/24/21 04:25 Creatinine 0.7 mg/dL (0.7-1.2) 12/24/21 04:25 GFR Calculation 129.1 mL/min (90-130) 12/24/21 04:25 Glucose 82 mg/dL (65-115) 12/24/21 04:25 Calculated Osmolality 288 mOsm/kg (285-295) 12/24/21 04:25 Calcium 8.7 mg/dL (8.5-10.5) 12/24/21 04:25 Phosphorus 2.5 mg/dL (2.5-4.5) 12/22/21 05:43 Phosphorus Cancelled 12/22/21 05:43 Total Bilirubin 0.2 mg/dL (0.15-1.2) 12/24/21 04:25 AST 16 U/L (0-40) 12/24/21 04:25 ALT 18 U/L (0-41) 12/24/21 04:25 Alkaline Phosphatase 70 IU/L (40-130) 12/24/21 04:25 Total Protein 5.9 g/dL (6.6-8.7) L 12/24/21 04:25 Albumin 3.5 g/dL (3.5-5.2) 12/24/21 04:25 Globulin 2.4 g/dL (1.3-4.6) 12/24/21 04:25 Procalcitonin 0.09 ng/mL (0-0.5) 12/22/21 05:43 Procalcitonin Cancelled 12/22/21 05:43 Vancomycin Trough 5.7 ug/mL (10-15) L 12/23/21 01:30 Hepatitis A IgM Ab Not Reportable 12/21/21 05:30 Hep Bs Antigen Non-reactive (Nonreactive) 12/21/21 05:30 Hep B Core IgM Ab Non-reactive (Nonreactive) 12/21/21 05:30 Hepatitis C Antibody Reactive (Nonreactive) H 12/21/21 05:30 HIV 1&2 Ab & HIV 1 Ag Non-reactive (Non-Reactiv) 12/21/21 05:30 HIV 1&2 Antibody Non-reactive (Non-Reactiv) 12/21/21 05:30 Myco Comp PCR Spec Srce Sputum 12/21/21 01:05 M.tuberculosis Cmplx PCR Not detected 12/21/21 01:05 Vitals Last Vital Signs Temp 97.6 F 12/26/21 07:43 Pulse 75 12/26/21 07:43 Resp 16 12/26/21 07:43 BP 114/68 12/26/21 07:43 Pulse Ox 96 12/26/21 07:43 Discharge Plan Discharge Patient Disposition: Home Condition: Stable Prescriptions: New Vitamin B-1 (mononitrate) 100 mg Tablet 100 mg PO DAILY Qty: 30 3RF Discharge Orders: Discharge Order (Routine); Ordered 12/26/21 Ordered By: Tracie Garrison Referrals: [facility] [Other] (Please reach out to [facility] to see if they can assist you with housing. ) Kiran Healy MD [Physician] - 2 weeks (HCV +) Discharge Diet: Regular Discharge Activity: Increase activity as tolerated Patient Instructions: Thiamine (By mouth), Hepatitis C, Hepatitis C (DC), Methamphetamine Use Disorder (DC), Adult Overdose (ED), Opioid Safety Discharge Attestations Time Spent in Discharge Care*: less than 30 min Quality Metrics Clinical Quality Measures [ No reported AMI, CVA or VTE this stay] Coding Level of Care Code Acute Chg FW DC note Diagnoses Homeless Z59.00 Smoking F17.200 Methamphetamine abuse F15.10 IVDU (intravenous drug user) F19.90 Alcohol use disorder Accidental drug overdose T50.901A Hepatitis C B19.20 Dyspnea R06.00 Ground glass opacity present on imaging of lung R91.8 Hemoptysis R04.2
[2021-12-26 11:56] LABS: MTB Complex Respiratory PCR NOT DETECTED; MTB Source SPUTUM
== END 2021-12-26 11:00 | disposition home or self-care (01) | DRG 917 ==
LOC: CSU 23:23 → ICU 23:24 → MEDSURG 12-21 16:07
PROVIDERS: Admitting Provider Internal Medicine; PCP Family Medicine; Visit Provider Internal Medicine
DX: T40.411A Poisoning by fentanyl or fentanyl analogs, accidental (unintentional), initial encounter (principal); J96.01 Acute respiratory failure with hypoxia; J69.0 Pneumonitis due to inhalation of food and vomit; F15.20 Other stimulant dependence, uncomplicated; R04.2 Hemoptysis; S27.329A Contusion of lung, unspecified, initial encounter; T43.621A Poisoning by amphetamines, accidental (unintentional), initial encounter; F10.20 Alcohol dependence, uncomplicated; F17.210 Nicotine dependence, cigarettes, uncomplicated; B19.20 Unspecified viral hepatitis C without hepatic coma; Z59.01 Sheltered homelessness; Y65.8 Other specified misadventures during surgical and medical care
CPT/HCPCS: 36415; 71045; 80053; 80074; 80202; 84100; 84145; 85025; 86403; 87040; 87070; 87205; 87449; 87522; 87556; 87641; 87806; 93306; 94664; 96372; C9113; J1650; J1940; J2405; J2543; J3370; J3411; J7050